=== PATIENT | female | born 1980 | race African-American/Black ===

== ENCOUNTER 2023-03-13 08:08 | Emergency (ER) | payer MEDICAID ==
[~2023-03-13] VITALS: Ht 162.6 cm; Wt 88.0 kg
[2023-03-13 08:19] VITALS: O2SAT 99
[2023-03-13] MEDS ORDERED: ONDANSETRON HCL 4MG/2ML INJ IV STA (09:26)
[2023-03-13] MEDS ORDERED: SODIUM CHLORIDE 0.9% 1,000 ML IV ONE (09:30)
[2023-03-13 09:45] LABS: BASOPHILS % 0.5 % (0.0-2.0); EOSINOPHILS % 0.3 % (0.0-5.0); HEMOGLOBIN. 11.6 g/dL (12.0-16.0); LYMPHOCYTES % 19.5 % (20.0-50.0); MEAN CORPUSCULAR HEMOGLOBIN 27.8 pg (28.0-32.0); MEAN CORPUSCULAR HGB CONC 32.3 g/dL (31.0-37.0); MEAN CORPUSCULAR VOLUME 86.1 fL (81.0-99.0); MEAN PLATELET VOLUME 7.7 fl (7.4-10.4); NEUTROPHILS % 72.7 % (40.0-76.0); PLATELET 338 x1000/uL (130-400); RED BLOOD CELL COUNT 4.18 mill/uL (4.2-5.4); RED CELL DISTRIBUTION WIDTH 15.6 % (11.6-14.6)
[2023-03-13 09:56] LABS: CHLORIDE 102 mEq/L (98-107); INDEX HEMOLYSI 3 (1-3); INDEX ICTERIC 1 (1-4); INDEX LIPEMIC 1 (1-3); POTASSIUM 3.6 mEq/L (3.5-5.1); SODIUM 134 mEq/L (136-145)
[2023-03-13 10:04] LABS: ALANINE AMINOTRANSFERASE 21 IU/L (13-61); ALBUMIN 3.4 g/dL (3.4-5.0); ASPARTATE AMINOTRANSFERASE 20 IU/L (15-37); BILIRUBIN TOTAL 0.4 mg/dL (0.1-1.0); CALCIUM 8.6 mg/dL (8.5-10.1); CARBON DIOXIDE 27 mEq/L (21-32); CREATININE 0.7 mg/dL (0.6-1.3); ETHANOL BLOOD < 10 mg/dL (<10); GLUCOSE 123 mg/dL (70-105); PROTEIN TOTAL 8.6 g/dL (6.0-8.3); UREA NITROGEN BLOOD 6 mg/dL (7-21)
[2023-03-13] MEDS ORDERED: MAGNESIUM/ALUMINUM HYDROXIDE/SIMETHICONE 30ML UDC PO ONE (10:15)
[2023-03-13] MEDS ORDERED: FAMOTIDINE 20MG/2ML VIAL IV ONE (10:15)
[2023-03-13 10:24] LABS: *AMPHETAMINES SCREEN URINE NEGATIVE (NEGATIVE); *BARBITURATES SCREEN URINE NEGATIVE (NEGATIVE); *BENZODIAZEPINES SCREEN URINE NEGATIVE (NEGATIVE); *COCAINE SCREEN URINE NEGATIVE (NEGATIVE); CANNABINOID URINE SCREEN NEGATIVE (NEGATIVE); ECSTASY MDMA SCREEN URINE NEGATIVE (NEGATIVE); METHADONE URINE SCREEN NEGATIVE (NEGATIVE); OPIATES URINE SCREEN NEGATIVE (NEGATIVE); PHENCYCLIDINE URINE SCREEN NEGATIVE (NEGATIVE)
[2023-03-13 10:35] LABS: HCG SCREEN NEGATIVE
[2023-03-13 10:38] LABS: COLOR URINE YELLOW (YELLOW); SPECIFIC GRAVITY URINE 1.019 (1.005-1.030)
[2023-03-13 10:39] LABS: GLUCOSE URINE NEGATIVE (NEGATIVE); KETONES URINE NEGATIVE (NEGATIVE); LEUKOCYTE ESTERASE URINE NEGATIVE (NEGATIVE); NITRITE URINE NEGATIVE (NEGATIVE); OCCULT BLOOD URINE TRACE (NEGATIVE); PROTEIN URINE 2+ (NEGATIVE)
[2023-03-13 10:40] LABS: CLARITY URINE TURBID (CLEAR); WBC URINE 0-2 /hpf (0-2)
[2023-03-13 10:41] LABS: BACTERIA URINE 2+; YEAST URINE NONE SEEN
[2023-03-13 10:42] LABS: SQUAMOUS EPITHELIAL CELL URINE 2+ /lpf (RARE/1+)
[2023-03-13] MEDS ORDERED: MORPHINE SULFATE 2 MG/ML CPJ (NOT FOR IM USE) IV ONE (15:30)
[2023-03-13] MEDS ORDERED: ONDANSETRON HCL 4MG/2ML INJ IV ONE (18:05)
[2023-03-13] MEDS ORDERED: ONDA4TAB50 MT (18:24)
[2023-03-13] MEDS ORDERED: IBUP-1525 MT (18:24)
[2023-03-13] MEDS ORDERED: HYDR-4001 MT (18:24)
[2023-03-13 18:54] VITALS: BP 148/99; PULSE 84; RESP 18; TEMP 98.7
== END 2023-03-13 18:56 | disposition home or self-care (01) ==
LOC: ER 08:08
DX: K80.20 Calculus of gallbladder without cholecystitis without obstruction (principal)
CPT/HCPCS: 80053; 80305; 81003; 80320; 84703; 83690; 85025; 36415; 74176; 76705; 96361; 96374; 96375; 96376; 99285; J3490; J2405; J7030; Z7610 ×3; G0480